=== PATIENT | female | born 1950 | race Caucasian/White ===

== ENCOUNTER → 2024-05-08 | Outpatient (CLI) | payer MEDICARE, OTHER, SELFPAY ==
[2024-05-08 11:26] LABS: Collection Type, Urine Clean Catch
[2024-05-08 13:05] LABS: Bacteria,Urine Rare; Bilirubin,Urine Negative (Negative); Blood,Urine 1+ (Negative); Clarity,Urine Turbid (Clear/Hazy); Color,Urine Lt-Yellow (Lt Yel-Yel); Glucose, Urine Negative (Negative); Ketones,Urine Negative (Negative); Leukocyte Esterase,Urine Positive (Negative); Nitrite,Urine Negative (Negative); Protein,Urine Negative (Neg - Trace); RBC,Urine 3 /hpf (0-3); Specific Gravity,Urine 1.004 (1.001-1.035); Squamous Epithelial Cell,Urine 3 /hpf (0-5); Urobilinogen,Urine Negative mg/dL (0.0-1.0); WBC,Urine 186 /hpf (0-5)
== END | disposition home or self-care (01) ==
LOC: SLDO 11:07
PROVIDERS: PCP Family Medicine; Referring Provider Family Medicine; Visit Provider Family Medicine
DX: N30.00 Acute cystitis without hematuria (principal)
CPT/HCPCS: 81001; 87077; 87086; 87186

== ENCOUNTER 2024-09-07 19:45 | Emergency (ER) | payer MEDICARE, OTHER, SELFPAY ==
[2024-09-07 19:47] VITALS: BMI 30.5
[2024-09-07 20:03] VITALS: BP 181/95; BP 182/101; PULSE 100; RESP 18; TEMP 36.5; O2SAT 95
--- NOTE | 2024-09-07 20:14 | PD.EDBACK ---
ED Back Injury Pain RME/HPI General Chief Complaint: General Adult/Misc Complain Stated Complaint: UTI DX AT CLINNIC TODAY. PT NOW HAVENG PAIN TO R F Time Seen by Provider: 09/07/24 20:14 Arrival date/time: 09/07/24 19:45 RME / HPI RME / HPI Narrative: This section includes all my notes and documentations, including HPI, PE, and ED course. Parvez Zimmer MD HPI: 74 y/o female with Hx of Type II DM and Chronic Bladder Infections presents with right flank pain, dysuria, and burning x 3 days. Denies nausea and vomiting. No other complaints. ROS: All negative except as documented in HPI. Physical Exam: General: Alert and oriented. No acute distress when remaining still. Eyes: Conjunctivae and lids clear. ENT: No nasal congestion. Neck: Supple. Heart: RRR. Lungs: No respiratory distress. Good air movement. No rhonchi, wheezing, rales. Abdomen: Soft and nontender. Normal bowel sounds. No distension. No rebound or guarding. Back: No CVA tenderness. Skin: Warm and dry. Neuro: Alert and oriented X 3. I reviewed all diagnostic test results: My review of the Abdomen/Pelvis CT report is: Mild right hydronephrosis secondary to 2 mm proximal right ureteral calculus. Blood tests unremarkable. UA showed positive leukocyte Estrace, 7 RBC, 207 WBC, and bacteria. At this point, diagnoses include: UTI, Right Kidney Stone. Treatment here included: Catapres, Flomax. Urine strainer dispensed. Patient started fosfomycin from PCP earlier today. Recommended outpatient care. Based on my best medical judgment, made decision no further evaluation or treatment indicated at this time. Patient understands and agrees to the discharge instructions customized and printed, see below. Discharge Instructions from Dr. Zimmer: --Your symptoms are due to a 2 mm right kidney stone.? It is outside the kidney.? It is trying to pass into your bladder.? --Increase oral fluid to flush your kidneys.? Maintain clear urine. if it's dark or yellow then increase oral fluid.? If you don't do this, you won't pass it.? --Take Flomax to help decrease spasms to increase the chance of passing it.? --Take Zofran as needed for nausea or vomiting. --Take Ketorolac/Toradol for pain control.? And tramadol.? If you are in severe pain, you won't pass it.?? --Strain your urine so you can catch the stone when you pass it.? --Continue fosfomycin from your private doctor. --See a private doctor on 09/09/2024 for recheck. Ask to review all test results and official radiology reports, to make sure you receive all necessary follow-ups and monitoring, including final urine culture results from today. Take the stone with you for analysis because certain stones can be prevented.? If you didn't pass it, ask for referral to see urologist.? Who will take the stone out for you. --Seek immediate medical care with fever over 100.4, persistent vomiting despite Zofran, intolerable pain, or with any concerns.?? Parvez Zimmer MD Related Data Home Medications ?Medication ?Instructions ?Recorded ?Confirmed candesartan 32 mg tablet (Atacand) 32 mg PO DAILY htn ##0 01/01/12 09/06/22 amlodipine 2.5 mg tablet 2.5 mg PO QDAY 09/06/22 03/19/23 aspirin 81 mg tablet,delayed 81 mg PO DAILY 09/06/22 03/19/23 release clonidine HCl 0.1 mg tablet 0.1 mg PO DAILY 09/06/22 09/06/22 estradiol 0.01% (0.1 mg/gram) 1 appful vaginal QDAY 03/19/23 03/19/23 vaginal cream (Estrace) losartan 50 mg tablet 50 mg PO QDAY 03/19/23 03/19/23 Previous Rx's ?Medication ?Instructions ?Recorded ketorolac 10 mg tablet 10 mg PO Q8H PRN pain 5 days #10 09/07/24 tabs tamsulosin 0.4 mg capsule (Flomax) 0.4 mg PO QDAY 7 days #7 caps 09/07/24 tramadol 50 mg tablet 50 mg PO Q8H PRN pain #20 tabs 09/07/24 Allergies Allergy/AdvReac Type Severity Reaction Status Date / Time ceftriaxone sodium Allergy Severe Hives Verified 09/07/24 19:53 clindamycin Allergy Severe Rash Verified 09/07/24 19:53 morphine Allergy Severe RASH, Verified 09/07/24 19:53 SWELLING cephalexin Allergy Intermediate Hives Verified 09/07/24 19:53 clarithromycin Allergy Intermediate Swelling Verified 09/07/24 19:53 of Lip/Tongue/Throat ciprofloxacin Allergy Mild RASH Verified 09/07/24 19:53 codeine Allergy Mild Rash Verified 09/07/24 19:53 hydrocodone Allergy Mild Rash Verified 09/07/24 19:53 hydromorphone (From Dilaudid) Allergy Mild Vomiting Verified 09/07/24 19:53 iodine Allergy Mild Rash Verified 09/07/24 19:53 oxycodone Allergy Mild Rash Verified 09/07/24 19:53 propoxyphene Allergy Mild Rash Verified 09/07/24 19:53 sulfamethoxazole (From Allergy Unknown Verified 09/07/24 19:53 Bactrim) trimethoprim (From Bactrim) Allergy Unknown Verified 09/07/24 19:53 Contrast Media Allergy Intermediate Rash Uncoded 09/07/24 19:53 Adhesives Allergy Mild Rash Uncoded 09/07/24 19:53 Review of Systems Review of Systems Systems Reviewed: All systems reviewed, normal except as documented Past Medical History Past Medical History CARDIAC: Positive Cardiac Disorders and Hypercholesterolemia RESPIRATORY: Positive Asthma GASTROINTESTINAL: Positive Hiatal Hernia GENITOURINARY: Positive Genitourinary Disorders (chronic bladder infection) MUSCULOSKELETAL: Positive Arthritis, Osteoporosis and Degenerative Disk Disease (back with sx) ENDOCRINE: Positive Diabetes Mellitus Type 2 (no longer on meds) PSYCHO/SOCIAL: Positive Anxiety Family History FAMILY HISTORY: Positive Family Cancer (brother colon ca, mother thyroid ca) ED Exam Narrative Physical exam: Refer to HPI Course Quality Measures none Orders Category Date Time Status Miscellaneous Nursing Order NOW Care 09/07/24 21:[address] abdomen pelvis wo con Stat Exams 09/07/24 20:15 Completed BMP [Basic Metabolic Panel] Stat Lab 09/07/24 20:41 Completed CBC Stat Lab 09/07/24 20:41 Completed Magnesium Stat Lab 09/07/24 20:41 Completed UA, C/S IF [Urinalysis, C/S if Indicated] Stat Lab 09/07/24 20:25 Completed Urine Culture Stat Lab 09/07/24 20:25 Received Tamsulosin HCl [Flomax] Med 09/07/24 21:29 Discontinued 0.4 mg PO X1 ONE cloNIDine HCL [Catapres] Med 09/07/24 20:15 Discontinued 0.2 mg PO X1 ONE Vital Signs Vital signs: Vital Signs Temperature 97.7 F 09/07/24 20:03 Pulse Rate 100 09/07/24 20:03 Respiratory Rate 18 09/07/24 20:03 Blood Pressure 181/95 H 09/07/24 20:03 Pulse Oximetry (%) 95 09/07/24 20:03 Oxygen Delivery Method Room Air 09/07/24 20:03 Back Pain / Injury MDM Narrative MDM Narrative:: Scribe Attestation: Savannah Reyes, am scribing for and in the presence of Dr. Zimmer. Provider Notation: Although this document has been carefully reviewed, there may still be some phonetic and other typographical errors.? These errors are purely grammatical due to imperfections in the software program and should not be construed in any way to? compromise the substance of the patient's medical care during this visit. 74 y/o female with Hx of Type II DM and Chronic Bladder Infections presents with right flank pain, dysuria, and burning, itchy rash x 3 days. Denies nausea and vomiting. Denies any new medication. No other complaints. Patient data External records reviewed:: [facility] previous records (Reviewed prior ED records from 04/21/22. Patient was seen for COVID-19.) Clinical information provided by:: patient Social determinants that could affect healthcare access:: none Patient has the following chronic illnesses:: Hypercholesterolemia, Asthma, Hiatal Hernia, chronic bladder infection, Arthritis, Osteoporosis, Degenerative Disk Disease, Diabetes Mellitus Type 2 How is presenting disease/condition affected by chronic disease/condition?: exacerbated by Evaluation data The following diagnostics were reviewed and interpreted by me:: lab results and radiology exam(s) Lab and/or radiology exams considered but not ordered:: None Interpretation Summary: I reviewed all diagnostic test results: My review of the Abdomen/Pelvis CT report is: Mild right hydronephrosis secondary to 2 mm proximal right ureteral calculus. Blood tests unremarkable. UA showed positive leukocyte Estrace, 7 RBC, 207 WBC, and bacteria. Medications / Prescriptions Medications or Prescriptions considered but not ordered:: None Medication administrations:: Medication Administration History Discontinued Medications Clonidine (Clonidine Hcl 0.1 Mg Tablet) 0.2 mg PO X1 ONE Stop: 09/07/24 20:16 Last Admin: 09/07/24 20:50 Dose: Not Given Documented By: KF Non-Admin Reason: Patient Refused Tamsulosin HCl (Tamsulosin Hcl 0.4 Mg Capsule) 0.4 mg PO X1 ONE Stop: 09/07/24 21:30 Last Admin: 09/07/24 21:45 Dose: 0.4 mg Documented By: Amilcar Gee Consultations Consultation(s) initiated? (list below): No Diagnosis Differential diagnosis back pain/injury: lumbar radiculopathy, sciatica, strain of lumbar region, renal colic, pyelonephritis, thoracic back pain, discitis and other (Cystitis, UTI, Sepsis, Renal calculi) Most likely diagnosis given after review of the tests above:: UTI, Right Kidney Stone Admission Indicated Admission indicated?: not indicated Explain why admission is indicated or not indicated:: With significant improvement, there was no indication for admission. Admission Request Was there a request for admission?: No Disposition Plan Disposition Plan: Discharge Discharge Attestation Discharge Attestation: The patient and all family members were given an opportunity to ask questions and understood the discharge instructions. Discharge instructions specifically effects, indications for sooner follow up or return to the emergency department, and the expected course of current diagnosis. Patient condition: Stable Discharge Plan Plan Patient Disposition: HOME (Self Care) Prescriptions/Referrals Prescriptions/Med Rec: New ketorolac 10 mg tablet 10 mg PO Q8H PRN (Reason: pain) 5 Days Qty: 10 0RF tamsulosin [Flomax] 0.4 mg capsule 0.4 mg PO QDAY 7 Days Qty: 7 0RF tramadol 50 mg tablet 50 mg PO Q8H PRN (Reason: pain) Qty: 20 0RF No Action losartan 50 mg tablet 50 mg PO QDAY estradiol [Estrace] 0.01 % (0.1 mg/gram) cream 1 appful vaginal QDAY Rx Instructions: for 14 days candesartan [Atacand] 32 MG tablet 32 mg PO DAILY Qty: 0 clonidine HCl 0.1 mg Tablet 0.1 mg PO DAILY amlodipine 2.5 mg Tablet 2.5 mg PO QDAY aspirin 81 mg Tablet,Delayed Release (Dr/Ec) 81 mg PO DAILY Referrals: No Primary/Family,Physician [Primary Care Provider] - In 1 week Problem List Clinical Impression: Right kidney stone, UTI (urinary tract infection) Patient/Caregiver Discharge Instructions Discharge Activity: activity as tolerated Education Materials: ED CYSTITIS Female Adult, ED Kidney Stone w/ Colic Additional Instructions: Discharge Instructions from Dr. Zimmer: --Your symptoms are due to a 2 mm right kidney stone.? It is outside the kidney.? It is trying to pass into your bladder.? --Increase oral fluid to flush your kidneys.? Maintain clear urine. if it's dark or yellow then increase oral fluid.? If you don't do this, you won't pass it.? --Take Flomax to help decrease spasms to increase the chance of passing it.? --Take Zofran as needed for nausea or vomiting. --Take Ketorolac/Toradol for pain control.? And tramadol.? If you are in severe pain, you won't pass it.?? --Strain your urine so you can catch the stone when you pass it.? --Continue fosfomycin from your private doctor. --See a private doctor on 09/09/2024 for recheck. Ask to review all test results and official radiology reports, to make sure you receive all necessary follow-ups and monitoring, including final urine culture results from today. Take the stone with you for analysis because certain stones can be prevented.? If you didn't pass it, ask for referral to see urologist.? Who will take the stone out for you. --Seek immediate medical care with fever over 100.4, persistent vomiting despite Zofran, intolerable pain, or with any concerns.?? Print Language: Yakut Stand Alone Forms: [employer] Award Info., Patient Portal Info Letter
--- NOTE | 2024-09-07 20:15 | XR_ITS ---
Examination: CT abdomen and pelvis without contrast. Coronal 3-D reconstructions. Sagittal 2-D reconstructions. Date and time of exam:September 07, 20242024 hours Comparison February 04, 2024 INDICATIONS: Right flank pain today, history kidney stones February 04 2024 CTDI: vol (mGy): 10.8 DLP: (mGycm): 588 Technique: Axial images of the abdomen have been obtained, 3 mm slice thickness Intravenous contrast material has not been administered. Low dose protocols were performed. One or more of the following dose reduction techniques were used; automated exposure control, adjustment of the mA and/or KV according to patient size, use of iterative reconstruction technique. Findings: Splenic lesions Contracted gallbladder No pancreatic or adrenal mass 4 mm lower pole right renal calculus Mild right hydronephrosis secondary to 2 mm proximal right ureteral calculus No bowel obstruction Urinary bladder intact IMPRESSION: Mild right hydronephrosis secondary to 2 mm proximal right ureteral calculus
--- NOTE | 2024-09-07 20:26 | PC.NURSE ---
no answer x 1 at 2024 for meds. checked lobby and outside
[2024-09-07 20:30] LABS: Collection Type, Urine Clean Catch
[2024-09-07 20:45] LABS: Bacteria,Urine Rare; Bilirubin,Urine Negative (Negative); Blood,Urine Trace (Negative); Clarity,Urine Turbid (Clear/Hazy); Color,Urine Lt-Yellow (Lt Yel-Yel); Glucose, Urine Negative (Negative); Ketones,Urine Negative (Negative); Leukocyte Esterase,Urine Positive (Negative); Nitrite,Urine Negative (Negative); PH,Urine 6.5 (5.0-7.0); Protein,Urine Negative (Neg - Trace); RBC,Urine 7 /hpf (0-3); Specific Gravity,Urine 1.007 (1.001-1.035); Squamous Epithelial Cell,Urine 1 /hpf (0-5); Urobilinogen,Urine Negative mg/dL (0.0-1.0); WBC,Urine 207 /hpf (0-5)
[2024-09-07 20:48] VITALS: BP 151/88; BP 155/83; PULSE 92
[2024-09-07 20:48] LABS: Culture Indicated,Urine Yes
[2024-09-07 20:49] LABS: Basophils # (Auto) 0.1 Thou/mm3 (0.0-0.2); Basophils % (Auto) 1 % (0-2.5); Eosinophils # (Auto) 0.3 Thou/mm3 (0.0-0.5); Eosinophils % (Auto) 3 % (0-10); Hematocrit 40.5 % (36.0-46.0); Immature Granulocytes % (Auto) 1 % (0-0); Immature Granulocytes Auto 0.06 Thou/mm3 (0.00-0.00); Lymphocytes # (Auto) 1.9 Thou/mm3 (1.0-4.8); Lymphocytes % (Auto) 20 % (10-50); Mean Corpuscular HGB Conc 34.6 g/dl (31.0-37.0); Mean Corpuscular Hemoglobin 29.7 pg (25.0-35.0); Mean Corpuscular Volume 86 fL (80-100); Monocytes # (Auto) 1.2 Thou/mm3 (0.0-0.8); Monocytes % (Auto) 13 % (0-12); Neutrophils # (Auto) 5.8 Thou/mm3 (1.8-7.7); Neutrophils % (Auto) 63 % (37-80); Nucleated Red Blood Cell % 0 /100 WBC (0); Platelet Count 180 Thou/mm3 (140-440); RDW Standard Deviation 44.1 fL (36.4-46.3); Red Blood Count 4.71 Miln/mm3 (4.00-5.20); White Blood Count 9.3 Thou/mm3 (3.6-11.0)
[2024-09-07 21:03] LABS: Anion Gap 8 (7-16); Carbon Dioxide 31.3 mMol/L (20.0-31.0); Chloride 106 mMol/L (98-107); Potassium 4.2 mMol/L (3.4-5.1); Sodium 145 mMol/L (136-145)
[2024-09-07 21:07] LABS: BUN/Creatinine Ratio 17 Ratio (12-20); Blood Urea Nitrogen 15 mg/dL (9-23); Creatinine (Component) 0.9 mg/dL (0.6-1.3); Estimated Creatinine Clearance 61.7 mL/min (>60); Glucose 165 mg/dL (74-106); Magnesium 2.2 mg/dL (1.6-2.6); Osmolality,Calculated 293 (275-295); eGFR > 60 See Note
[2024-09-07] MEDS: TAMSULOSIN HCL 0.4 MG CAPSULE PO (21:45)
== END 2024-09-07 22:00 | disposition home or self-care (01) ==
PROVIDERS: Emergency Provider Emergency Medicine
DX: N13.6 Pyonephrosis (principal)
CPT/HCPCS: 36415; 74176; 80048; 81001; 83735; 85025; 87086; 99284; A9270

== ENCOUNTER → 2024-11-14 | Outpatient (CLI) | payer MEDICARE, OTHER, SELFPAY ==
--- NOTE | 2024-11-14 13:00 | XR_ITS ---
Examination: Screening digital mammography, bilateral Computer aided detection 3-D breast Tomosynthesis, bilateral Date and time of exam: November 14, 2024 1250 hours Compared to mammograms dating to September 20, 2020 Indication: Screening Technique: Nonmagnified MLO, CC views of the breasts to been obtained, reconstructed from 3-D Tomosynthesis images. R2 computer aided detection program utilized for evaluation of suspicious masses and/or abnormal calcifications. 3-D Tomosynthesis images obtained. Findings: The breasts are heterogeneously dense, which may obscure small masses Stable focal asymmetry upper outer right breast which appears to represent glandular tissue Benign calcifications Impression: BI-RADS Category 0: Incomplete: Need additional imaging evaluation Recommend repeat right breast sonography to confirm glandular tissue upper outer right breast
== END | disposition home or self-care (01) ==
PROVIDERS: Referring Provider Obstetrics & Gynecology; Visit Provider Obstetrics & Gynecology
DX: Z12.31 Encounter for screening mammogram for malignant neoplasm of breast (principal); R92.8 Other abnormal and inconclusive findings on diagnostic imaging of breast
CPT/HCPCS: 77063; 77067

== ENCOUNTER → 2024-12-09 | Outpatient (CLI) | payer MEDICARE, OTHER, SELFPAY ==
--- NOTE | 2024-12-09 15:45 | XR_ITS ---
Examination: Breast ultrasound, unilateral, right Date and time of exam: December 09, 2024, 1543 hours INDICATIONS: Palpable lump right breast one year Technique: Real-time dominguez scale ultrasonographic imaging performed right breast including all 4 quadrants as well as nipple retroareolar and axillary region. Findings: 5:00 cyst 7 x 7 mm 10:00 cyst 6 x 6 mm 10:00 cyst 6 x 5 mm Dilated retroareolar ducts No solid nodules IMPRESSION: BI-RADS Category 2: Benign findings
== END | disposition home or self-care (01) ==
PROVIDERS: Referring Provider Obstetrics & Gynecology; Visit Provider Obstetrics & Gynecology
DX: N64.89 Other specified disorders of breast (principal)
CPT/HCPCS: 76641

== ENCOUNTER → 2025-02-13 | Outpatient (CLI) | payer MEDICARE, OTHER, SELFPAY ==
--- NOTE | 2025-02-13 10:53 | XR_ITS ---
Examination: Retroperitoneal ultrasound, complete Technique: Multiple high resolution grayscale images of the retroperitoneum obtained, including kidneys and bladder. Exam date and time: February 13, 2025, 1136 hours INDICATIONS: Recurrent urinary tract infections several years. FINDINGS: Right kidney 11.4 cm renal cortex 1.1 cm Mild hydronephrosis 6 mm 8 mm renal calculi Left kidney 10.3 cm renal cortex 1.2 cm Moderate bilateral renal scar formation No bladder mass or bladder calculi IMPRESSION: Mild right hydronephrosis Right renal calculi 6 x 8 mm Moderate bilateral renal scar formation
== END | disposition home or self-care (01) ==
PROVIDERS: PCP Student in an Organized Health Care Education/Training Program; Referring Provider Student in an Organized Health Care Education/Training Program; Visit Provider Student in an Organized Health Care Education/Training Program
DX: N13.30 Unspecified hydronephrosis (principal); N20.0 Calculus of kidney; N28.89 Other specified disorders of kidney and ureter
CPT/HCPCS: 76770

== ENCOUNTER → 2025-03-19 | Outpatient (CLI) | payer MEDICARE, OTHER, SELFPAY ==
--- NOTE | 2025-03-19 16:30 | XR_ITS ---
Examination: CT abdomen and pelvis without contrast. Coronal 3-D reconstructions. Sagittal 2-D reconstructions. Date and time of exam: March 19, 2025, 1639 hours INDICATIONS: Generalized abdominal pain months, history right hydronephrosis 2 mm right ureteral calculus on stone study September 07, 2024, mild right hydronephrosis on renal sonogram February 13, 2025 CTDI: vol (mGy): 9.03 DLP: (mGycm): 471 Technique: Axial images of the abdomen have been obtained, 3 mm slice thickness Intravenous contrast material has not been administered. Low dose protocols were performed. One or more of the following dose reduction techniques were used; automated exposure control, adjustment of the mA and/or KV according to patient size, use of iterative reconstruction technique. Findings: No visualized liver or splenic lesion No gallstones No pancreatic or adrenal mass 2 mm 4 mm right renal calculi Mild right hydronephrosis, 3 mm proximal right ureteral calculus No bowel obstruction or diverticulitis No bladder mass or bladder calculi Severe osteopenia IMPRESSION: Right renal calculi Mild right hydronephrosis, 3 mm proximal right ureteral calculus
== END | disposition home or self-care (01) ==
LOC: CCTX 16:11
PROVIDERS: PCP Internal Medicine; Referring Provider Nurse Practitioner Family; Visit Provider Nurse Practitioner Family
DX: N13.2 Hydronephrosis with renal and ureteral calculous obstruction (principal)
CPT/HCPCS: 74176